=== PATIENT | male | born 2005 | race Caucasian/White ===

== ENCOUNTER → 2024-11-22 10:34 | Outpatient (REF) | payer OTHER, SELFPAY | LOC: PAVMRI 10:34 | PROVIDERS: ATTENDING PHYSICIAN Nurse Practitioner Family; REFERRING PHYSICIAN Radiology Diagnostic Radiology | DX: R10.2 Pelvic and perineal pain (principal); S05.50XA Penetrating wound with foreign body of unspecified eyeball, initial encounter | CPT/HCPCS: 70030; 72195 ==

== ENCOUNTER → 2025-08-12 14:04 | Outpatient (REF) | payer OTHER, SELFPAY | LOC: RCS 14:04 | PROVIDERS: ATTENDING PHYSICIAN Internal Medicine Cardiovascular Disease; FAMILY PHYSICIAN Nurse Practitioner Family | DX: R00.2 Palpitations (principal); R00.0 Tachycardia, unspecified | CPT/HCPCS: 93306 ==